=== PATIENT | female | born 1995 ===

== ENCOUNTER 2017-06-25 08:10 | Emergency (ER) | payer OTHER ==
[~2017-06-25] VITALS: Ht 177.8 cm; Wt 82.6 kg
[2017-06-25 10:08] VITALS: BP 132/78
== END 2017-06-25 10:08 | disposition home or self-care (01) ==
LOC: EME 08:10
DX: S90.01XA Contusion of right ankle, initial encounter (principal); V48.6XXA Car passenger injured in noncollision transport accident in traffic accident, initial encounter; Y92.410 Unspecified street and highway as the place of occurrence of the external cause; Z98.890 Other specified postprocedural states; F17.200 Nicotine dependence, unspecified, uncomplicated
CPT/HCPCS: 73610; 99281; 99283